=== PATIENT | female | born 1995 | race Caucasian/White ===

== ENCOUNTER 2023-08-20 06:11 | Emergency (ER) | payer SELFPAY ==
[2023-08-20 06:55] LABS: Absolute Lymphocytes (CBC) 2.3 K/uL (0.7-4.9); Hematocrit 34.2 % (36.0-45.0); Lymphocytes % 20.6 % (15.3-44.8); MCV 94.5 fL (80-100); MPV 9.2 fL (7.6-11.3); Platelets 190 thou/uL (152-406); RBC Red Blood Cell Count 3.62 M/uL (3.86-4.86)
[2023-08-20 06:56] LABS: Urine Bacteria None Seen /HPF (<20); Urine Bilirubin NEGATIVE (Negative); Urine Blood Negative (Negative); Urine Clarity Extremely Turbid (Clear); Urine Color Yellow (Yellow); Urine Glucose NEGATIVE (Negative); Urine Mucus Slight /HPF (None Seen); Urine Protein TRACE (Negative); Urine RBC <5 /HPF (None Seen); Urine Urobilinogen Normal (Normal); Urine pH 5.5 (5.0-7.0)
[2023-08-20 07:10] LABS: Bilirubin Total 0.3 mg/dL (0.2-1.0); Potassium 3.3 mEq/L (3.5-5.1); Protein, Total 6.1 g/dL (6.4-8.2)
[2023-08-20] MEDS ORDERED: ACETAMINOPHEN 325 MG TABLET ONE (07:54)
--- NOTE | 2023-08-20 08:04 | RAD REPORT ---
EXAM DESCRIPTION: US - Renal Ultrasound-Complete - 08/20/2023 7:33 am CLINICAL HISTORY: possible kidney stone, eval for kidney hydronephrosis COMPARISON: No comparisons FINDINGS: Both kidneys are normal in size, shape and echotexture. The right kidney measures 10.8 cm in length. Moderate hydronephrosis. No echogenic calculi, focal mas s, or perinephric fluid. The left kidney measures 11.5 cm in length. No hydronephrosis, focal mass or echogenic calculi. The urinary bladder is not distended limiting evaluation. Partially visualized gravid uterus. IMPRESSION: Moderate right hydronephrosis. No echogenic calculi.
--- NOTE | 2023-08-20 08:22 | ER ---
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 as6 Coronavirus screen: At this time, the client does not indicate any symptoms associated with coronavirus-19. Ebola Screen: No symptoms or risks identified at this time. Initial Sepsis Screen: Does the patient meet any 2 criteria? No. Patient's initial sepsis screen is negative. Does the patient have a suspected source of infection? No. Patient's initial sepsis screen is negative. Risk Assessment: Do you want to hurt yourself or someone else? Patient reports no desire to harm self or others. Onset of symptoms was August 20, 2023 at 04:00. 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 - Social history:: Smoking status: Patient/guardian denies using tobacco. - Family history:: not pertinent. - Hospitalizations: : No recent hospitalization is reported. Screenin:47 [facility] ED Fall Risk Assessment (Adult) History of falling in the last 3 months, as6 including since admission No falls in past 3 months (0 pts) Confusion or Disorientation No (0 pts) Intoxicated or Sedated No (0 pts) Impaired Gait No (0 pts) Mobility Assist Device Used No (0 pt) Altered Elimination No (0 pt) Score/Fall Risk Level 0 - 2 = Low Risk. Abuse screen: Denies threats or abuse. Nutritional screening: No deficits noted. Tuberculosis screening: No symptoms or risk factors identified. Assessment: 06:46 General: Appears uncomfortable, Behavior is cooperative. Pain: Complains of pain in as6 right low back Quality of pain is described as crampy, sharp. Neuro: No deficits noted. Cardiovascular: No deficits noted. Respiratory: No deficits noted. GI: No deficits noted. No signs and/or symptoms were reported involving the gastrointestinal system. : Reports urinary frequency. 08:31 Reassessment: Patient appears in no apparent distress at this time. No changes from ld1 previously documented assessment. Patient and/or family updated on plan of care and expected duration. Pain level reassessed. Patient is alert, oriented x 3, equal unlabored respirations, skin warm/dry/pink. Vital Signs: 06:22 BP 108 / 66; Pulse 61; Resp 20 S; Temp 97.7(O); Pulse Ox 100% on R/A; Weight 65.77 kg as6 (R); Height 5 ft. 8 in. (R); Pain 7/10; 08:31 BP 111 / 71; Pulse 62; Resp 18; Pulse Ox 100% on R/A; ld1 06:22 Body Mass Index 22.05 (65.77 kg, 172.72 cm) as6 06:22 Pain Scale: Adult as6 ED Course: 06:14 Patient arrived in ED. rg4 06:22 Arm band placed on. as6 06:24 Triage completed. as6 06:46 CBC with Diff Sent. as6 06:46 CMP Sent. as6 06:46 Lipase Sent. as6 06:46 Test, Urine Sent. as6 06:46 Urinalysis w/ reflexes Sent. as6 06:49 Patient has correct armband on for positive identification. Bed in low position. Call as6 light in reach. Side rails up X2. 06:49 Inserted saline lock: 20 gauge in left antecubital area, using aseptic technique. Blood as6 collected. 06:57 Dusty Campbell MD is Attending Physician. rn 07:00 Report received from MAGNO Andersen. kc6 07:35 Renal Ultrasound-Complete In Process Unspecified. EDMS 08:31 Yumiko Guerra, MAGNO is Primary Nurse. ld1 08:31 No provider procedures requiring assistance completed. IV discontinued, intact, ld1 bleeding controlled, No redness/swelling at site. Administered Medications: 07:45 Drug: Acetaminophen PO 650 mg PO once Route: PO; cp4 Medication: 08:31 VIS not applicable for this client. ld1 Outcome: 08:21 Discharge ordered by . magno 08: Discharged to home ambulatory, with family, ld1 08: Condition: stable :31 Discharge instructions given to patient, Instructed on discharge instructions, follow up and referral plans. Demonstrated understanding of instructions, follow-up care, : Patient left the ED. ld1 Signatures: Dispatcher [employer] EDMS Dusty Campbell MD MD rn Garcia, Rubi rg4 Yumiko Guerra RN RN ld1 Hernesto Rucker RN RN as6 Awilda Tierney RN RN kc6 Juana eMnjivar cp4
--- NOTE | 2023-08-20 08:22 | EDPHYS ---
Physician Documentation [facility] Name: Imelda Nazario Age: 28 yrs Sex: Female : 1995 Arrival Date: 08/20/2023 Time: 06:11 Bed 5 Private MD: ED Physician Dusty Campbell HPI: 08/20 07:41 This 28 yrs old Female presents to ER via Ambulatory with complaints of Low Back Pain, rn Hip Pain, 19 Weeks . 07:45 The patient presents with pain that is acute. The symptoms are located in the low back. rn The pain radiates to the pelvis. Onset: The symptoms/episode began/occurred last night. Modifying factors: The patient symptoms are alleviated by nothing, the patient symptoms are aggravated by nothing. Associated signs and symptoms: Pertinent positives: dysuria, Pertinent negatives: fever, hematuria, Vaginal bleeding. Severity of symptoms: At their worst the symptoms were moderate, in the emergency department the symptoms have improved. The patient has not experienced similar symptoms in the past. Patient reports is approximately 19 weeks , last night began having right lower back pain that radiated to the right hip/pelvis. Father with history of kidney stones but patient has never experienced a kidney stone. No fever. Positive for dysuria. No vaginal bleeding or leakage of fluid. Still feels baby moving.. 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 - Social history:: Smoking status: Patient/guardian denies using tobacco. - Family history:: not pertinent. - Hospitalizations: : No recent hospitalization is reported. ROS: 07:45 Constitutional: Negative for fever, chills, and weight loss, Cardiovascular: Negative rn for chest pain, palpitations, and edema, Respiratory: Negative for shortness of breath, cough, wheezing, and pleuritic chest pain, Abdomen/GI: Positive for right flank pain : Positive for dysuria, negative for hematuria or vaginal bleeding MS/Extremity: Negative for injury and deformity, Skin: Negative for injury, rash, and discoloration, Exam: 07:45 Constitutional: This is a well developed, well nourished patient who is awake, alert, rn and in no acute distress. Head/Face: Normocephalic, atraumatic. Cardiovascular: Regular rate and rhythm. No pulse deficits. Respiratory: No increased work of breathing, no retractions or nasal flaring. Abdomen/GI: Soft, non-tender Back: No spinal tenderness. No costovertebral tenderness. MS/ Extremity: Pulses equal, no cyanosis. Neuro: Awake and alert, GCS 15 Vital Signs: 06:22 BP 108 / 66; Pulse 61; Resp 20 S; Temp 97.7(O); Pulse Ox 100% on R/A; Weight 65.77 kg as6 (R); Height 5 ft. 8 in. (R); Pain 7/10; 08:31 BP 111 / 71; Pulse 62; Resp 18; Pulse Ox 100% on R/A; ld1 06:22 Body Mass Index 22.05 (65.77 kg, 172.72 cm) as6 06:22 Pain Scale: Adult as6 MDM: 06:57 Patient medically screened. rn 07:21 ED course: Pt declines any pain medication or even tylenol.. rn 08:19 Differential diagnosis: arthritis, UTI, Kidney stone. Data reviewed: vital signs, rn nurses notes, lab test result(s), radiologic studies, and as a result, I will discharge patient. Counseling: I had a detailed discussion with the patient and/or guardian regarding the historical points, exam findings, and any diagnostic results supporting the discharge/admit diagnosis, lab results, radiology results, the need for outpatient follow up, to return to the emergency department if symptoms worsen or persist or if there are any questions or concerns that arise at home. Response to treatment: the patient's symptoms have markedly improved after treatment, and as a result, I will discharge patient. ED course: Patient with moderate hydronephrosis on the right side and story consistent with kidney stone. No related problems at this time. No fever. No evidence of UTI. Offered transfer for OB and urological consultation and patient declines. Pain has resolved right now and declines any further pain medication. Patient is not from here and would like to go home. Understands risks and benefits of transfer versus DC home and chooses to go home. Strict return precautions given.. 08/20 06:30 Order name: CBC with Diff; Complete Time: 07:04 6 08/20 06:30 Order name: CMP; Complete Time: 07:21 08/20 06:30 Order name: Lipase; Complete Time: 07:21 08/20 06:30 Order name: Test, Urine; Complete Time: 07:04 6 08/20 06:30 Order name: Urinalysis w/ reflexes; Complete Time: 07:04 08/20 07:09 Order name: Renal Ultrasound-Complete; Complete Time: 08:07 EDMS 08/20 06:30 Order name: IV Saline Lock; Complete Time: 06:46 08/20 06:30 Order name: Labs collected and sent; Complete Time: :46 Administered Medications: 07:45 Drug: Acetaminophen PO 650 mg PO once Route: PO; cp4 Disposition Summary: 08/20/23 08:21 Discharge Ordered Notes: Location: Home rn Problem: new rn Symptoms: have improved rn Condition: Stable rn Diagnosis - Calculus of ureter rn Followup: rn - With: Private Physician - When: As needed - Reason: Recheck today's complaints, Re-evaluation by your physician Discharge Instructions: - Discharge Summary Sheet rn - Kidney Stones rn - Renal Colic rn - Dietary Guidelines to Help Prevent Kidney Stones rn Forms: - Medication Reconciliation Form rn - Thank You Letter rn - 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 EDMS EDMS
[2023-08-20 08:51] VITALS: TEMP 97.7; O2SAT 100
[2023-08-20 08:57] VITALS: BP 111/71
== END 2023-08-20 08:31 | disposition home or self-care (01) ==
LOC: ER 06:11
DX: O99.891 Other specified diseases and conditions complicating pregnancy (principal); N20.1 Calculus of ureter; Z3A.16 16 weeks gestation of pregnancy
CPT/HCPCS: 36415; 76770; 80053; 81001; 81025; 83690; 85025